=== PATIENT | female | born 1945 | race Caucasian/White ===

== ENCOUNTER 2018-02-15 05:50 | Day surgery (SDC) | payer MEDICARE ==
[~2018-02-15] VITALS: Ht 165.1 cm; Wt 99.8 kg
[~2018-02-15 05:50] MED LIST: AZO CRANBERRY1 EAC1 PO; CALCIUM CITRAT1 EAC8 PO; CHROMIUM PICO200 MC1 PO; CINNAMON500 MG PO; DHEA25 MG PO; DHEA50 MG PO; EVENING PRIMRO500 M1 PO; FAMCICLOVIR500 MG PO; FAMVIR500 MG PO; FISH OIL 1,0001 EACH PO; GLUCOSAMINE CH1 EAC7 PO; GLUCOSAMINE CO1 EACH PO; HORMONE CREAM TOP; HYDROCHLOROTHIA50 MG PO; LEVOTHYROXINE50 MCG PO; LYSINE1000 MG PO; MACROBID 100 M100 MG PO; MACROBID PO; MAGNESIUM OXID400 MG PO; MECLIZINE HCL12.5 MG PO; MECLIZINE HCL25 MG PO; MULTIVITAMINS1 EAC7 PO; NIACIN50 MG PO; OXYCODONE-ACET1 EAC1 PO; POTASSIUM CHLO10 MEQ PO; POTASSIUM99 M1 PO; PREDNISONE20 MG PO; PROBIOTIC1 EAC1 PO; SELENIUM100 MCG PO; SENNA PLUS TAB1 EACH PO; VITAMIN A10000 UNIT PO; VITAMIN C500 M1 PO; VITAMIN D-32000 UNI1 PO; VITAMIN D3 COM1 EACH PO
[2018-02-15] MEDS ORDERED: KEFLEX500 MG PO (06:20)
--- NOTE | 2018-02-15 08:20 | NUR ---
PLATELET INFUSION STARTED. DAUGHTER SITTING AT BEDSIDE.
--- NOTE | 2018-02-15 11:15 | NUR ---
02/15/18 1115 Cheli Martinez 1056 PT ARRIVED IN PACU SLEEPY. 1105 PT AWAKE WITH NO C/O'S. AT BEDSIDE TALKING WITH PT.
--- NOTE | 2018-02-15 12:00 | NUR ---
PT IS BACK TO DS FROM PACU. CALL LIGHT WITHIN REACH. WATER ON BEDSIDE TABLE. WILL REASSESS WITHIN THE HOUR.
[2018-02-15] MEDS ORDERED: PERCOCET 5-3251 EACH PO (12:16)
[2018-02-15] MEDS ORDERED: BACTRIM DS TAB1 EACH PO (12:16)
--- NOTE | 2018-02-15 12:51 | NUR ---
PT HITS CALL LIGHT AND REQUESTS JELLO AND PUDDING. SHE ALSO REQUESTS A PAD, SHE FEELS LIKE SHE IS BLEEDING A LITTLE BIT. IS AT THE BEDSIDE. NO OTHER C/O'S AT THIS TIME. WILL REASSESS WITHIN THE HOUR.
--- NOTE | 2018-02-15 14:13 | NUR ---
ZHANNA 1355: PT IS UP OOB WITH STANDBY ASSISTANCE TO THE BATHROOM. SHE IS ABLE TO VOID 200ML OF BLOODY URINE. THERE ARE A FEW SMALL CLOTS NOTICED, PT IS EDUCATED THAT THE BLEEDING WILL SUBSIDE OVER THE NEXT FEW DAYS. PT IS GIVEN DC INSTRUCTIONS WITH HER PRESENT. SHE AND HER IS GIVEN THE OPPORTUNITY TO ASK QUESTIONS. SHE IS EDUCATED ON HOW BEST TO DRESS HERSELF AND TO OPEN HER CURTAIN WHEN SHE IS READY.
--- NOTE | 2018-02-22 08:17 | OR ---
[facility] [address], [place] [address] Signed DATE OF OPERATION: 02/15/2018 SURGEON: Hayley Hanna MD PREOPERATIVE DIAGNOSES: 1. Incomplete bladder emptying. 2. Recurrent urinary tract infections. 3. 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 POSTOPERATIVE DIAGNOSES: 1. Incomplete bladder emptying. 2. Recurrent urinary tract infections. 3. 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 NAMES OF PROCEDURES: 1. Diagnostic cystoscopy. 2. Release of mid-urethral sling. ANESTHESIA: General. ESTIMATED BLOOD LOSS: 50 mL. COMPLICATIONS: None. SPECIMENS: None. INDICATIONS FOR PROCEDURE: Ms. El is a very pleasant 72-year-old female with a history of pelvic organ prolapse, who underwent a cystocele repair along with placement of a Obtryx mid-urethral sling in 2013. Since that time, the patient has experienced progressively worsening recurrent urinary tract infections, along with difficulty voiding. The patient reports a significantly diminished force of stream and it takes her at least 5 to 10 minutes to completely empty her bladder. She underwent diagnostic cystoscopy, which confirmed that she was experiencing active bladder outlet obstruction symptoms. She presents today to undergo cystoscopy with release of her mid-urethral sling. Electronically Signed By: HAYLEY HANNA MD 02/22/18 0817 PATIENT NAME: BRYANT EL OPERATIVE REPORT DATE OF : 43 REPORT #: [id number] PHYSICIAN: HAYLEY HANNA MD PCP: ROBERT BALDERAS DO REPORT IS CONFIDENTIAL AND NOT TO BE RELEASED WITHOUT AUTHORIZATION [facility] [address], [place] [address] Signed OPERATIVE FINDINGS: 1. On cystoscopy, there was no evidence of any suspicious masses, lesions, or stones. I meet with a rather significant amount of resistance upon entrance of the bladder with the cystoscope. The bilateral ureteral orifices are in their normal anatomic location. 2. On exam, the patient has what appears to be a grade 2 cystocele. There is no evidence of extrusion or erosion of either the mid-urethral sling or her bladder sling. 3. The mid-urethral sling was incised in the midline and it retracted easily. Because of the patient's oozing, I chose not to excise any portion of the sling, as it released quite easily, and the anterior urethral wall was now free of suburethral sling. DESCRIPTION OF PROCEDURE: After informed consent was obtained, the patient was taken back to the operating room. [facility] table, where general anesthesia was induced. She was placed in the dorsal lithotomy position and her genitalia prepped and draped in standard sterile fashion. 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 Her genitalia were prepped and draped in a standard sterile fashion and a 16-Guinean Ferrell catheter was inserted into the patient's bladder, which was then emptied completely. A Leonardo retractor was placed over the genital area and the hooks were placed for retraction of the labia and introitus. Approximately 10 mL of 0.25% Marcaine with epinephrine were then injected into the anterior vaginal wall or into the periurethral space. Using a #15 blade, an approximately 3 cm vertical incision was made in the anterior wall just over the area of the urethra. I could palpate the sling quite easily and so there was no overall difficulty finding the sling. I dissected the incision down with Metzenbaum scissors bilaterally. I did not open the retropubic fascia on either side. Once the mid-urethral sling was palpable, I dissected it from the periurethral tissue. A right angle was then used to isolate the mid-urethral sling. The mid-urethral sling was then incised and each end retracted back towards the bilateral fornices on each side. There was a good deal of oozing in the patient, likely secondary to her history. I chose not to try to find either end of the sling, as I felt like it was not necessary. The area of the mid-urethra, where the obstruction was at its worst was now free of sling. The area was irrigated and FloSeal was applied into the periurethral space on both sides. The incision was then closed in a continuous running fashion using 2-0 Vicryl. There were a couple of areas in the introital area of minor tearing due to the presence of the hooks. There was one at the 3 o'clock position, one at the 6 o'clock position of the introitus. Each of these very small tears were closed in a simple interrupted fashion using 3-0 Vicryl. The area was cleaned and dried and the patient's Ferrell catheter was then removed. Diagnostic cystoscopy was then performed. Please see above findings. Once I was satisfied that there was no evidence of injury to the urethra, the cystoscope was removed and the 16-Guinean Ferrell catheter was reinserted into the patient's bladder. Vaginal packing impregnated with AVC cream was then put into the vagina for hemostasis. The procedure was then terminated. The Electronically Signed By: HAYLEY HANNA MD 02/22/18 0817 PATIENT NAME: BRYANT EL OPERATIVE REPORT DATE OF : 43 REPORT #: [id number] PHYSICIAN: HAYLEY HANNA MD PCP: ROBERT BALDERAS DO REPORT IS CONFIDENTIAL AND NOT TO BE RELEASED WITHOUT AUTHORIZATION [address] [address] Signed patient tolerated the procedure well without any complication. She will now be transferred back to the postanesthesia care unit in stable condition. DISPOSITION: The patient will be discharged to home in stable condition in the company of her a little later this morning. I called him and notified him of the details of the procedure and answered all of his questions. She will be sent home today with Bactrim Double Strength one tablet p.o. b.i.d. for 5 days, along with Percocet 5/325 dispense #30, one tablet p.o. q.6 hours p.r.n. pain. I reiterated the importance with the patient and her today of her avoiding any heavy lifting and taking it easy for the next 1 to 2 weeks. She is scheduled to return to clinic to see me in 3 weeks for her first postoperative followup. MD LAVELL Williamson/PARAG /[id number] Copies: ~ Electronically Signed By: HAYLEY HANNA MD 02/22/18 0817 PATIENT NAME: BRYANT EL OPERATIVE REPORT DATE OF : 43 REPORT #: [id number] PHYSICIAN: HAYLEY HANNA MD PCP: ROBERT BALDERAS DO REPORT IS CONFIDENTIAL AND NOT TO BE RELEASED WITHOUT AUTHORIZATION
== END 2018-02-15 14:20 | disposition home or self-care (01) ==
LOC: DS 05:50 → OPS 05:50
PROVIDERS: Urology
PROC: 0TQB0ZZ Repair Bladder, Open Approach (ICD-10-PCS; principal; 2018-02-15 09:00)
DX: T83.89XA Other specified complication of genitourinary prosthetic devices, implants and grafts, initial encounter (principal); N32.0 Bladder-neck obstruction; N39.0 Urinary tract infection, site not specified; E03.9 Hypothyroidism, unspecified; D72.0 Genetic anomalies of leukocytes; M19.90 Unspecified osteoarthritis, unspecified site; Z98.890 Other specified postprocedural states; Z87.891 Personal history of nicotine dependence; Z88.8 Allergy status to other drugs, medicaments and biological substances; Z79.2 Long term (current) use of antibiotics; Z79.899 Other long term (current) drug therapy
CPT/HCPCS: 00860; 36415; 36430; 82310; 83970; 86850; 86900; 86901; J0696; J1100; J2405; J2704; J2765; J3010; J7120; P9035

== ENCOUNTER 2021-06-26 15:06 | Emergency (ER) | payer MEDICARE ==
[~2021-06-26] VITALS: Ht 165.1 cm; Wt 87.5 kg
[~2021-06-26 15:06] MED LIST changes: +BACTRIM DS TAB1 EACH PO; +KEFLEX500 MG PO; +PERCOCET 5-3251 EACH PO
[2021-06-26] MEDS ORDERED: OXYBUTYNIN CHLOR5 M1 PO (15:17)
[2021-06-26] MEDS ORDERED: METHOTREXATE2.5 MG PO (15:18)
[2021-06-26] MEDS ORDERED: ATIVAN1 MG PO (18:29)
[2021-06-26] MEDS ORDERED: ONDANSETRON ODT8 MG PO (18:29)
--- NOTE | 2021-06-26 19:19 | EKG ---
[facility] [address] [facility] [place], [place] [address] Signed Atrial flutter with variable AV block Nonspecific ST abnormality Abnormal ECG When compared with ECG of 26-JUN-2021 15:07, (Unconfirmed) Atrial flutter has replaced Sinus rhythm Vent. rate has decreased BY 62 BPM Confirmed by HOLLY SEGAL DO ([id number]) on 06/26/2021 7:19:36 PM Electronically Signed By: HOLLY SEGAL DO 06/26/21 1919 PATIENT NAME: BRYANT EL Electrocardiogram DATE OF : 43 PHYSICIAN: HOLLY SEGAL DO REPORT #: [id number] REPORT IS CONFIDENTIAL AND NOT TO BE RELEASED WITHOUT AUTHORIZATION
--- NOTE | 2021-06-26 19:19 | EKG ---
[facility] [address] [address] Signed Sinus tachycardia with 1st degree AV block Inferior infarct , possibly acute ACUTE PR / STEMI Abnormal ECG When compared with ECG of 25-JAN-2018 12:42, CT interval has increased Vent. rate has increased BY [address] elevation now present in Inferior leads Nonspecific T wave abnormality now evident in Anterior leads Confirmed by HOLLY SEGAL DO ([id number]) on 06/26/2021 7:19:30 PM Electronically Signed By: HOLLY SEGAL DO 06/26/211918 PATIENT NAME: BRYANT EL Electrocardiogram DATE OF : 43 PHYSICIAN: HOLLY SEGAL DO REPORT #: [id number] REPORT IS CONFIDENTIAL AND NOT TO BE RELEASED WITHOUT AUTHORIZATION
== END 2021-06-26 18:48 | disposition home or self-care (01) ==
LOC: ED 15:06
DX: I48.91 Unspecified atrial fibrillation (principal); H81.399 Other peripheral vertigo, unspecified ear; D69.6 Thrombocytopenia, unspecified; Z87.891 Personal history of nicotine dependence; Z88.6 Allergy status to analgesic agent; Z79.899 Other long term (current) drug therapy; Z20.822 Contact with and (suspected) exposure to COVID-19
CPT/HCPCS: 70450; 70496; 70498; 71045; 80053; 83735; 84484; 85025; 85610; 93005; 93010; 99285-25; A9270-GY; C9803; J2060; J2550; Q3014; Q9967; U0003

== ENCOUNTER 2021-07-10 18:21 | Emergency (ER) | payer MEDICARE ==
[~2021-07-10] VITALS: Ht 165.1 cm; Wt 87.5 kg
[~2021-07-10 18:21] MED LIST changes: +ATIVAN1 MG PO; +METHOTREXATE2.5 MG PO; +ONDANSETRON ODT8 MG PO; +OXYBUTYNIN CHLOR5 M1 PO
--- OUTSIDE RECORDS SUMMARY | 2021-07-10 18:24 | XMS ---
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 Edmar has no Care Guidelines for this patient. Angi [facility] (12 MO.) [facility] NOTE: Visits indicate total known visits. ED/C VISIT TRACKING (12 MO.) [facility] COMPLAINT: - HIGH PULSE 06/26/2021 15:[address] [facility] [place] TYPE: Emergency COMPLAINT: - WEAKNESS AND DIZZINESS DIAGNOSES: - Nausea with vomiting, unspecified - Other peripheral vertigo, unspecified ear - Other ferry terminal supervisor (current) drug therapy - Personal history of nicotine dependence - Allergy status to analgesic agent - Unspecified atrial fibrillation - Thrombocytopenia, unspecified INPATIENT VISIT TRACKING (12 MO.) No inpatient visits to display in this time frame [email or web address]
[2021-07-10] MEDS ORDERED: METOPROLOL SUCC25 MG PO (21:06)
--- NOTE | 2021-07-10 22:34 | EKG ---
[facility] [address] [facility] [place] [address] Signed Atrial flutter with variable AV block T wave abnormality, consider inferior ischemia Abnormal ECG When compared with ECG of 26-JUN-2021 15:30, ST no longer elevated in Inferior leads T wave inversion more evident in Inferior leads Confirmed by HOLLY SEGAL DO ([id number]) on 07/10/2021 10:34:21 PM Electronically Signed By: HOLLY SEGAL DO 07/10/21 2234 PATIENT NAME: BRYANT EL Electrocardiogram DATE OF : 43 PHYSICIAN: HOLLY SEGAL DO REPORT #: [id number] REPORT IS CONFIDENTIAL AND NOT TO BE RELEASED WITHOUT AUTHORIZATION
== END 2021-07-10 21:31 | disposition home or self-care (01) ==
LOC: ED 18:21
DX: I48.92 Unspecified atrial flutter (principal); D69.6 Thrombocytopenia, unspecified; Z88.6 Allergy status to analgesic agent; Z79.899 Other long term (current) drug therapy
CPT/HCPCS: 80053; 84484; 85025; 93005; 93010; 99285-25

== ENCOUNTER 2021-10-17 12:14 | Emergency (ER) | payer MEDICARE ==
[~2021-10-17] VITALS: Ht 165.1 cm; Wt 87.5 kg
[~2021-10-17 12:14] MED LIST changes: +METOPROLOL SUCC25 MG PO
[2021-10-17] MEDS ORDERED: XARELTO20 MG PO (13:30)
[2021-10-17] MEDS ORDERED: DOXYCYCLINE HY100 MG PO (16:04)
[2021-10-17] MEDS ORDERED: BENZONATATE100 MG PO (16:08)
--- NOTE | 2021-10-17 19:01 | EKG ---
[facility] [address] [facility] [place] [address] Signed Atrial flutter with variable AV block Abnormal ECG Confirmed by NAE ARTEAGA MD ([id number]) on 10/17/2021 7:01:11 PM Electronically Signed By: NAE ARTEAGA MD 10/17/211900 PATIENT NAME: BRYANT EL Electrocardiogram DATE OF : 43 PHYSICIAN: NAE ARTEAGA MD REPORT #: [id number] REPORT IS CONFIDENTIAL AND NOT TO BE RELEASED WITHOUT AUTHORIZATION
== END 2021-10-17 16:46 | disposition home or self-care (01) ==
LOC: ED 12:14
DX: J40 Bronchitis, not specified as acute or chronic (principal); Z88.6 Allergy status to analgesic agent; Z79.899 Other long term (current) drug therapy
CPT/HCPCS: 71045; 80053; 83735; 83880; 84484; 85025; 93005; 93010; 94640; 96374; 99285-25; J1100

== ENCOUNTER 2024-11-28 09:55 | Emergency (ER) | payer MEDICARE ==
[~2024-11-28] VITALS: Ht 165.1 cm; Wt 89.8 kg
[~2024-11-28 09:55] MED LIST changes: +BENZONATATE100 MG PO; +DOXYCYCLINE HY100 MG PO; +XARELTO20 MG PO
[2024-11-28] MEDS ORDERED: PREDNISONE20 MG PO (10:08)
[2024-11-28] MEDS ORDERED: FOLIC ACID1 MG PO (10:09)
[2024-11-28] MEDS ORDERED: AMITRIPTYLINE H10 MG PO (10:09)
[2024-11-28] MEDS ORDERED: POTASSIUM CHLO10 ME2 PO (10:09)
[2024-11-28] MEDS ORDERED: LISINOPRIL10 MG PO (10:09)
[2024-11-28] MEDS ORDERED: ALBUTEROL/IPRATROPIUM 3 ML NEB INH PRN (10:15)
[2024-11-28 10:54] LABS: BASOPHILS 0.9 % (0-2); EOSINOPHILS 1.4 % (0-6); HEMATOCRIT 36.9 % (35.0-50.0); HEMOGLOBIN 12.1 g/dL (12.0-18.0); LYMPHOCYTES 23.3 % (24-44); MCH 30.2 (27-36); MCHC 32.9 g/dl (30-36); MCV 91.9 fl (81-99); MONOCYTES 3.8 % (0-12); NEUTROPHILS 70.6 % (39-80); RBC 4.01 M/ul (4.3-5.7); RDW 18.5 (10.5-15.0)
[2024-11-28 11:05] LABS: ALBUMIN 3.5 g/dL (3.4-5.0); ALBUMIN/GLOBULIN RATIO 0.78 (1.1-2.4); ANION GAP 8.4 (7-21); BILIRUBIN, TOTAL 0.8 ng/dL (0.2-1.0); BUN/CREATININE RATIO 16.27 (6.0-28.6); CALCIUM 9.7 mg/dL (8.5-10.1); CREATININE, SERUM 0.86 mg/dL (0.55-1.02); MAGNESIUM 1.9 mg/dL (1.8-2.4); POTASSIUM 4.4 mmol/L (3.5-5.1)
[2024-11-28 11:19] LABS: INFLUENZA B NAA NEGATIVE (NEGATIVE); RESPIRATORY SYNCYTIAL VIR NAA NEGATIVE (NEGATIVE)
[2024-11-28 11:22] LABS: PLATELET COUNT 14 K/uL (140-440)
[2024-11-28] MEDS ORDERED: DOXYCYCLINE HY100 MG PO (13:01)
[2024-11-28] MEDS ORDERED: CODEINE-GUAIFE120 ML PO (13:01)
[2024-11-28] MEDS ORDERED: METHYLPREDNISOLO4 M1 PO (13:01)
[2024-11-28 13:51] VITALS: BP 114/75
--- NOTE | 2024-12-02 10:08 | EKG ---
[facility] [address] [facility] [place] [address] Signed Sinus rhythm with marked sinus arrhythmia Minimal voltage criteria for LVH, may be normal variant ( R in aVL ) Borderline ECG When compared with ECG of 17-OCT-2021 14:19, Sinus rhythm has replaced Atrial flutter ST no longer elevated in Inferior leads Confirmed by Mamie Wilson DO ([id number]) on 12/02/2024 10:08:01 AM Electronically Signed By: MAMIE WILSON DO 12/02/24 1008 PATIENT NAME: BRYANT EL Electrocardiogram DATE OF : 43 PHYSICIAN: MAMIE WILSON DO REPORT #: [id number] REPORT IS CONFIDENTIAL AND NOT TO BE RELEASED WITHOUT AUTHORIZATION
== END 2024-11-28 13:52 | disposition home or self-care (01) ==
LOC: ED 09:55
PROVIDERS: Emergency Medicine
DX: R06.02 Shortness of breath (principal); I10 Essential (primary) hypertension; Z88.6 Allergy status to analgesic agent; Z88.2 Allergy status to sulfonamides; Z79.890 Hormone replacement therapy; Z79.899 Other long term (current) drug therapy; Z77.22 Contact with and (suspected) exposure to environmental tobacco smoke (acute) (chronic)
CPT/HCPCS: 36415; 71045; 80053; 83735; 83880; 84484; 85025; 85060; 87502; 93005; 93010; 94640; 99285-25; U0002